=== PATIENT | female | born 1935 | race Caucasian/White ===

== ENCOUNTER 2020-05-18 13:26 | Inpatient (IN) ==
[2020-05-18] MEDS ORDERED: *HR* Warfarin 3 MG TABLET PO SCH (18:00)
[2020-05-18] MEDS: Nystatin POWDER 30 GM BOTTLE TP SCH ×2 (18:25→22:20)
[2020-05-18] MEDS: Amoxicillin 250 MG CHEWABLE TABLET PO SCH (22:18)
[2020-05-18] MEDS: Metoprolol XL (24 HR) Succ 50 MG TAB.ER.24H PO SCH (22:20)
[2020-05-18] MEDS: Morphine Sulfate 2 MG/ML SYRINGE IVP PRN (22:21)
[2020-05-18] MEDS: Bumetanide 1 MG TABLET PO SCH (22:28)
[2020-05-19 05:49] LABS: Basophils # 0.1 K/mcL (0.0-0.2); Eosinophils # 0.1 K/mcL (0.0-0.6); Eosinophils % 0.9 %; Hematocrit 32.9 % (35.3-44.9); Hemoglobin 9.9 g/dL (11.5-15.4); Immature Granulocytes % 10.8 % (0-4); Lymphocytes # 0.9 K/mcL (0.6-4.6); Lymphocytes % 10.1 %; Mean Corpuscular HGB Conc 30.1 g/dL (31.6-35.5); Mean Corpuscular Hemoglobin 27.5 pg (28.0-33.3); Mean Corpuscular Volume 91.4 fL (83.0-100.0); Mean Platelet Volume 10.1 fL (9.4-12.4); Monocytes # 0.6 K/mcL (0.0-1.3); Monocytes % 7.1 %; Neutrophils # 6.3 K/mcL (1.6-8.9); Platelet Count 191 K/mcL (140-400); Red Cell Distribution Width 16.1 % (11.5-14.5); Segmented Neutrophils % 70.1 %
[2020-05-19 05:57] LABS: INR 1.8; Prothrombin Time 20.7 Seconds (9.4-12.1)
[2020-05-19] MEDS: Morphine Sulfate 2 MG/ML SYRINGE IVP PRN ×3 (07:53→23:15)
[2020-05-19] MEDS: Amoxicillin 250 MG CHEWABLE TABLET PO SCH (07:54)
[2020-05-19] MEDS: DilTIAZem CD (24hr) 180 MG CAP.ER.24H PO SCH (07:54)
[2020-05-19] MEDS: *HR* Digoxin 0.125 MG TABLET PO SCH (07:54)
[2020-05-19] MEDS: Nystatin POWDER 30 GM BOTTLE TP SCH ×3 (07:55→19:44)
[2020-05-19] MEDS: Bumetanide 1 MG TABLET PO SCH ×2 (07:55→16:33)
[2020-05-19] MEDS: Metoprolol XL (24 HR) Succ 50 MG TAB.ER.24H PO SCH (07:55)
[2020-05-19] MEDS: Magnesium Oxide 400 MG TABLET PO SCH (07:55)
[2020-05-19] MEDS: Spironolactone 25 MG TABLET PO SCH (07:55)
[2020-05-19 08:28] LABS: Platelet Estimate Normal (Normal)
[2020-05-19] MEDS ORDERED: Warfarin perPT PO PRN (13:55)
[2020-05-19] MEDS: cefTRIAXone 2,000 MG in Water for inj. (sterile) 20 ML IVP SCH (16:33)
[2020-05-19] MEDS ORDERED: *HR* Warfarin 2 MG TABLET PO ONE (18:00)
[2020-05-19] MEDS ORDERED: 0.9 % Sodium Chloride 500 ML IVC ONE (18:59)
[2020-05-19] MEDS ORDERED: Morphine Sulfate 2 MG/ML SYRINGE IVP ONE (20:34)
[2020-05-20] MEDS: Colchicine 0.6 MG TABLET PO PRN (01:54)
[2020-05-20] MEDS: Morphine Sulfate 2 MG/ML SYRINGE IVP PRN ×3 (05:27→21:06)
[2020-05-20 05:56] LABS: Hematocrit 32.4 % (35.3-44.9); Hemoglobin 9.8 g/dL (11.5-15.4); Mean Corpuscular HGB Conc 30.2 g/dL (31.6-35.5); Mean Corpuscular Hemoglobin 27.4 pg (28.0-33.3); Mean Corpuscular Volume 90.5 fL (83.0-100.0); Mean Platelet Volume 10.3 fL (9.4-12.4); Platelet Count 189 K/mcL (140-400); Red Blood Count 3.58 M/mcL (3.82-4.97); Red Cell Distribution Width 15.9 % (11.5-14.5); White Blood Count 8.5 K/mcL (4.3-11.1)
[2020-05-20 06:04] LABS: INR 2.8; Prothrombin Time 31.2 Seconds (9.4-12.1)
[2020-05-20 06:15] LABS: Calcium 8.1 mg/dL (8.6-10.3); Potassium 5.2 mEq/L (3.5-5.1)
[2020-05-20] MEDS: Bumetanide 1 MG TABLET PO SCH (10:04)
[2020-05-20] MEDS: Magnesium Oxide 400 MG TABLET PO SCH (10:04)
[2020-05-20] MEDS: *HR* Digoxin 0.125 MG TABLET PO SCH (10:04)
[2020-05-20] MEDS: Spironolactone 25 MG TABLET PO SCH (10:05)
[2020-05-20] MEDS: DilTIAZem CD (24hr) 180 MG CAP.ER.24H PO SCH (10:05)
[2020-05-20] MEDS: Nystatin POWDER 30 GM BOTTLE TP SCH ×3 (10:06→20:16)
[2020-05-20] MEDS: Metoprolol XL (24 HR) Succ 50 MG TAB.ER.24H PO SCH ×2 (10:06→20:14)
[2020-05-20] MEDS: cefTRIAXone 2,000 MG in Water for inj. (sterile) 20 ML IVP SCH (16:17)
[2020-05-20] MEDS ORDERED: *HR* Warfarin 1 MG TABLET PO ONE (18:00)
[2020-05-21] MEDS: Ondansetron ODT 4 MG TAB.RAPDIS SL PRN (05:18)
[2020-05-21] MEDS ORDERED: Ipratropium/Albuterol Neb 3 ML ONE (05:52)
[2020-05-21] MEDS: Ipratropium/Albuterol Neb 3 ML IH PRN (05:55)
[2020-05-21] MEDS: Morphine Sulfate 2 MG/ML SYRINGE IVP PRN (06:19)
[2020-05-21 07:22] LABS: Hematocrit 35.3 % (35.3-44.9); Hemoglobin 10.5 g/dL (11.5-15.4); Mean Corpuscular HGB Conc 29.7 g/dL (31.6-35.5); Mean Corpuscular Hemoglobin 27.4 pg (28.0-33.3); Mean Corpuscular Volume 92.2 fL (83.0-100.0); Mean Platelet Volume 10.5 fL (9.4-12.4); Platelet Count 208 K/mcL (140-400); Red Blood Count 3.83 M/mcL (3.82-4.97); Red Cell Distribution Width 15.8 % (11.5-14.5); White Blood Count 9.8 K/mcL (4.3-11.1)
[2020-05-21 07:30] LABS: INR 3.5; Prothrombin Time 39.4 Seconds (9.4-12.1)
[2020-05-21 07:44] LABS: Calcium 8.5 mg/dL (8.6-10.3); Potassium 5.8 mEq/L (3.5-5.1)
[2020-05-21 07:54] LABS: Lymphocytes # 0.8 K/mcL (0.6-4.6); Monocytes # 0.6 K/mcL (0.0-1.3); Neutrophils # 7.8 K/mcL (1.6-8.9)
[2020-05-21 07:56] LABS: Platelet Estimate Normal (Normal)
[2020-05-21] MEDS: Metoprolol XL (24 HR) Succ 50 MG TAB.ER.24H PO SCH ×2 (08:53→21:15)
[2020-05-21] MEDS: Magnesium Oxide 400 MG TABLET PO SCH (08:53)
[2020-05-21] MEDS: Bumetanide 1 MG TABLET PO SCH ×2 (08:53→17:21)
[2020-05-21] MEDS: *HR* Digoxin 0.125 MG TABLET PO SCH (08:53)
[2020-05-21] MEDS: Spironolactone 25 MG TABLET PO SCH (08:54)
[2020-05-21] MEDS: DilTIAZem CD (24hr) 180 MG CAP.ER.24H PO SCH (08:54)
[2020-05-21] MEDS: Nystatin POWDER 30 GM BOTTLE TP SCH ×3 (09:02→21:17)
[2020-05-21] MEDS ORDERED: Neosporin OINT 15 GM TUBE TP ONE (10:13)
[2020-05-21] MEDS: *HR* LORazepam 0.5 MG TABLET PO PRN ×2 (10:33→22:26)
[2020-05-21] MEDS: Cefepime HCl 1,000 MG in 0.9 % Sodium Chloride Mini Bag 100 ML IVPB SCH ×2 (10:43→17:21)
[2020-05-21] MEDS ORDERED: Furosemide 40 MG/4 ML VIAL IVP ONE (11:30)
[2020-05-22] MEDS: Cefepime HCl 1,000 MG in 0.9 % Sodium Chloride Mini Bag 100 ML IVPB SCH ×3 (01:23→17:33)
[2020-05-22] MEDS: Ondansetron ODT 4 MG TAB.RAPDIS SL PRN (05:55)
[2020-05-22 07:28] LABS: Basophils % 0.5 %; Eosinophils # 0.1 K/mcL (0.0-0.6); Eosinophils % 0.6 %; Hematocrit 33.1 % (35.3-44.9); Hemoglobin 9.7 g/dL (11.5-15.4); Immature Granulocytes % 2.2 % (0-4); Lymphocytes % 11.3 %; Mean Corpuscular HGB Conc 29.3 g/dL (31.6-35.5); Mean Corpuscular Volume 95.4 fL (83.0-100.0); Mean Platelet Volume 10.2 fL (9.4-12.4); Monocytes # 1.1 K/mcL (0.0-1.3); Monocytes % 12.3 %; Neutrophils # 6.3 K/mcL (1.6-8.9); Platelet Count 175 K/mcL (140-400); Red Blood Count 3.47 M/mcL (3.82-4.97); Red Cell Distribution Width 15.9 % (11.5-14.5); Segmented Neutrophils % 73.1 %; White Blood Count 8.6 K/mcL (4.3-11.1)
[2020-05-22 07:31] LABS: INR 3.6; Prothrombin Time 39.8 Seconds (9.4-12.1)
[2020-05-22 07:52] LABS: Calcium 8.3 mg/dL (8.6-10.3); Potassium 5.2 mEq/L (3.5-5.1)
[2020-05-22] MEDS: *HR* Digoxin 0.125 MG TABLET PO SCH (08:41)
[2020-05-22] MEDS: Metoprolol XL (24 HR) Succ 50 MG TAB.ER.24H PO SCH ×2 (08:41→19:52)
[2020-05-22] MEDS: DilTIAZem CD (24hr) 180 MG CAP.ER.24H PO SCH (08:42)
[2020-05-22] MEDS: Bumetanide 1 MG TABLET PO SCH ×2 (08:42→17:35)
[2020-05-22] MEDS: Magnesium Oxide 400 MG TABLET PO SCH (08:42)
[2020-05-22] MEDS: Nystatin POWDER 30 GM BOTTLE TP SCH ×3 (09:47→19:54)
[2020-05-22] MEDS: *HR* LORazepam 0.5 MG TABLET PO PRN (11:26)
[2020-05-22] MEDS: Morphine Sulfate 2 MG/ML SYRINGE IVP PRN (19:51)
[2020-05-23] MEDS: Morphine Sulfate 2 MG/ML SYRINGE IVP PRN (01:56)
[2020-05-23] MEDS: Cefepime HCl 1,000 MG in 0.9 % Sodium Chloride Mini Bag 100 ML IVPB SCH ×3 (01:57→17:00)
[2020-05-23] MEDS: Ipratropium/Albuterol Neb 3 ML IH PRN (02:13)
[2020-05-23] MEDS: *HR* LORazepam 0.5 MG TABLET PO PRN (02:52)
[2020-05-23] MEDS ORDERED: Furosemide 20 MG/2 ML VIAL IVP ONE (04:55)
[2020-05-23] MEDS ORDERED: Levalbuterol Neb 1.25 MG/3 ML IH ONE (04:57)
[2020-05-23 07:17] LABS: Basophils # 0.1 K/mcL (0.0-0.2); Basophils % 0.7 %; Eosinophils % 0.4 %; Hematocrit 31.5 % (35.3-44.9); Hemoglobin 9.1 g/dL (11.5-15.4); Immature Granulocytes % 2.7 % (0-4); Lymphocytes # 0.8 K/mcL (0.6-4.6); Lymphocytes % 11.9 %; Mean Corpuscular HGB Conc 28.9 g/dL (31.6-35.5); Mean Corpuscular Hemoglobin 27.5 pg (28.0-33.3); Mean Corpuscular Volume 95.2 fL (83.0-100.0); Mean Platelet Volume 10.7 fL (9.4-12.4); Monocytes # 0.8 K/mcL (0.0-1.3); Monocytes % 12.4 %; Neutrophils # 4.8 K/mcL (1.6-8.9); Platelet Count 182 K/mcL (140-400); Red Blood Count 3.31 M/mcL (3.82-4.97); Red Cell Distribution Width 15.7 % (11.5-14.5); Segmented Neutrophils % 71.9 %; White Blood Count 6.7 K/mcL (4.3-11.1)
[2020-05-23 07:28] LABS: INR 2.8; Prothrombin Time 31.9 Seconds (9.4-12.1)
[2020-05-23 07:32] LABS: Calcium 8.2 mg/dL (8.6-10.3)
[2020-05-23 08:10] LABS: Hypochromasia Present (Not Present); Microcytosis Present (Not Present)
[2020-05-23] MEDS: DilTIAZem CD (24hr) 180 MG CAP.ER.24H PO SCH (09:00)
[2020-05-23] MEDS: Magnesium Oxide 400 MG TABLET PO SCH (09:00)
[2020-05-23] MEDS: Spironolactone 25 MG TABLET PO SCH (09:04)
[2020-05-23] MEDS: Metoprolol XL (24 HR) Succ 50 MG TAB.ER.24H PO SCH ×2 (09:04→20:14)
[2020-05-23] MEDS: *HR* Digoxin 0.125 MG TABLET PO SCH (09:04)
[2020-05-23] MEDS: Bumetanide 1 MG TABLET PO SCH (09:04)
[2020-05-23] MEDS: Nystatin POWDER 30 GM BOTTLE TP SCH ×3 (09:06→20:50)
[2020-05-23] MEDS ORDERED: methylPREDNISolone 125 MG/2 ML VIAL IVP ONE (14:12)
[2020-05-23] MEDS: Ipratropium/Albuterol Neb 3 ML IH SCH ×2 (16:37→20:42)
[2020-05-23] MEDS: Furosemide 40 MG/4 ML VIAL IVP SCH ×2 (17:03→20:15)
[2020-05-23] MEDS: acetaZOLAMIDE 250 MG TABLET PO SCH (17:03)
[2020-05-23] MEDS ORDERED: *HR* Warfarin 1 MG TABLET PO ONE (18:00)
[2020-05-23] MEDS ORDERED: Furosemide 40 MG/4 ML VIAL IVP SCH (21:00)
[2020-05-23] MEDS: MethylPREDNISolone 40 MG/ML VIAL IVP SCH (23:04)
[2020-05-24] MEDS: Ipratropium/Albuterol Neb 3 ML IH SCH ×7 (00:31→23:52)
[2020-05-24] MEDS: Cefepime HCl 1,000 MG in 0.9 % Sodium Chloride Mini Bag 100 ML IVPB SCH ×2 (01:05→08:29)
[2020-05-24 07:13] LABS: INR 2.8; Prothrombin Time 31.8 Seconds (9.4-12.1)
[2020-05-24] MEDS: MethylPREDNISolone 40 MG/ML VIAL IVP SCH ×3 (08:27→23:21)
[2020-05-24] MEDS: Furosemide 40 MG/4 ML VIAL IVP SCH ×2 (08:30→14:58)
[2020-05-24] MEDS: DilTIAZem CD (24hr) 180 MG CAP.ER.24H PO SCH (08:35)
[2020-05-24] MEDS: *HR* Digoxin 0.125 MG TABLET PO SCH (08:35)
[2020-05-24] MEDS: Metoprolol XL (24 HR) Succ 50 MG TAB.ER.24H PO SCH ×2 (08:35→20:04)
[2020-05-24] MEDS: acetaZOLAMIDE 250 MG TABLET PO SCH (08:35)
[2020-05-24] MEDS: Magnesium Oxide 400 MG TABLET PO SCH (08:36)
[2020-05-24] MEDS: Nystatin POWDER 30 GM BOTTLE TP SCH ×3 (08:37→20:05)
[2020-05-24 09:24] LABS: Hematocrit 33.1 % (35.3-44.9); Mean Corpuscular HGB Conc 30.2 g/dL (31.6-35.5); Mean Corpuscular Hemoglobin 28.1 pg (28.0-33.3); Mean Platelet Volume 10.8 fL (9.4-12.4); Platelet Count 205 K/mcL (140-400); Red Blood Count 3.56 M/mcL (3.82-4.97); Red Cell Distribution Width 15.4 % (11.5-14.5); White Blood Count 6.2 K/mcL (4.3-11.1)
[2020-05-24 09:32] LABS: Calcium 8.6 mg/dL (8.6-10.3); Magnesium 1.8 mg/dL (1.6-2.6); Potassium 5.1 mEq/L (3.5-5.1)
[2020-05-24] MEDS ORDERED: *HR* Warfarin 1 MG TABLET PO ONE (18:00)
[2020-05-24] MEDS: Doxycycline 100 MG CAPSULE PO SCH (20:04)
[2020-05-24] MEDS: *HR* LORazepam 0.5 MG TABLET PO PRN (21:39)
[2020-05-24] MEDS: Ondansetron ODT 4 MG TAB.RAPDIS SL PRN (23:38)
[2020-05-25] MEDS: Ipratropium/Albuterol Neb 3 ML IH SCH ×2 (04:22→07:58)
[2020-05-25 06:45] LABS: INR 2.7; Prothrombin Time 30.2 Seconds (9.4-12.1)
[2020-05-25 07:23] LABS: Calcium 8.1 mg/dL (8.6-10.3); Potassium 4.3 mEq/L (3.5-5.1)
[2020-05-25] MEDS ORDERED: Furosemide 40 MG/4 ML VIAL IVP SCH ×2 (09:00→17:00)
[2020-05-25] MEDS: DilTIAZem CD (24hr) 180 MG CAP.ER.24H PO SCH (10:11)
[2020-05-25] MEDS: acetaZOLAMIDE 250 MG TABLET PO SCH (10:11)
[2020-05-25] MEDS: *HR* Digoxin 0.125 MG TABLET PO SCH (10:11)
[2020-05-25] MEDS: Nystatin POWDER 30 GM BOTTLE TP SCH ×2 (10:11→16:03)
[2020-05-25] MEDS: Metoprolol XL (24 HR) Succ 50 MG TAB.ER.24H PO SCH (10:11)
[2020-05-25] MEDS: Doxycycline 100 MG CAPSULE PO SCH (10:11)
[2020-05-25] MEDS: Magnesium Oxide 400 MG TABLET PO SCH (10:12)
[2020-05-25] MEDS: MethylPREDNISolone 40 MG/ML VIAL IVP SCH ×2 (10:13→16:02)
[2020-05-25] MEDS ORDERED: Ipratropium/Albuterol Neb 3 ML IH PRN (11:00)
[2020-05-25] MEDS: Colchicine 0.6 MG TABLET PO PRN (16:00)
[2020-05-25] MEDS ORDERED: Furosemide 40 MG TABLET PO SCH (17:00)
[2020-05-25] MEDS: *HR* LORazepam 0.5 MG TABLET PO PRN (17:55)
[2020-05-25] MEDS ORDERED: *HR* HYDROcodone/Acet 5/325 mg TABLET PO PRN (17:57)
[2020-05-25] MEDS ORDERED: *HR* Warfarin 1 MG TABLET PO ONE (18:00)
[2020-05-25] MEDS ORDERED: Furosemide 40 MG/4 ML VIAL IVP ONE (18:17)
[2020-05-25] MEDS: Morphine Sulfate 2 MG/ML SYRINGE IVP PRN (18:21)
[2020-05-25 18:23] VITALS: BP 138/72
[2020-05-25 18:47] LABS: ABG Base Excess 10 mEq/L (-2 to 3); ABG HCO3 42 mEq/L (21-27); ABG Oxygen Saturation 82 % (95-98); ABG PCO2 100 mmHg (35-45); ABG PH 7.23 pH Units (7.32-7.45); ABG PO2 59 mmHg (85-104); ABG TCO2 45 mEq/L (20-26); Blood Gas Pressure Support 16 cm H2O
== END 2020-05-25 19:51 | disposition short-term general hospital (02) | DRG 292 ==
LOC: INPPIK 16:06
PROVIDERS: ADMIT Family Medicine; ATTEND Family Medicine